=== PATIENT | male | born 1990 | race Caucasian/White ===

== ENCOUNTER 2018-02-15 09:46 | Emergency (ER) | payer OTHER ==
[2018-02-15] MEDS ORDERED: Lidocaine 1% 50 ML MDV INJECT ONE (10:13)
--- NOTE | 2018-02-15 10:25 | EDM.PDOC ---
ED HPI GENERAL MEDICAL PROBLEM - General Chief Complaint: ENT Problem Stated Complaint: R EAR/HEAD INJURY Time Seen by Provider: 02/15/18 10:09 Source of Information: Reports: Patient, RN Notes Reviewed - History of Present Illness INITIAL COMMENTS - FREE TEXT/NARRATIVE: 27-year-old male comes in with right ear laceration. He was installing a garage door, states one of the metal railing pieces fell striking the right side of his head and resultant laceration of the right ear lobe. There was a lot of bleeding initially, now better. No LOC. No major head or neck discomfort. No other significant injury. Last tetanus immunization a very short time ago. Headache Pain Score (Numeric/FACES): 6 - Related Data Allergies Allergy/AdvReac Type Severity Reaction Status Date / Time No Known Allergies Allergy Verified 02/15/18 10:00 Home Meds: Home Meds FLUoxetine HCl [Fluoxetine HCl] 40 mg PO DAILY 02/15/18 [History] Past Medical History Other Gastrointestinal History: Ulcers- gets endoscopy every 4-5 years Psychiatric History: Reports: ADHD, Depression - Past Surgical History HEENT Surgical History: Reports: Oral Surgery GI Surgical History: Reports: Appendectomy Social & Family History - Family History Family Medical History: Noncontributory - Tobacco Use Smoking Status *Q: Former Smoker Used Tobacco, but Quit: Yes Month/Year Tobacco Last Used: January 2018 - Caffeine Use Caffeine Use: Reports: Energy Drinks, Soda Other Caffeine Use: daily - Recreational Drug Use Recreational Drug Use: No ED ROS ENT - Review of Systems Review Of Systems: See Below Constitutional: Reports: No Symptoms HEENT: Reports: Ear Pain, Other (Laceration right lobe) Respiratory: Reports: No Symptoms Cardiovascular: Reports: No Symptoms GI/Abdominal: Denies: Nausea, Vomiting Musculoskeletal: Denies: Neck Pain, Shoulder Pain, Arm Pain Neurological: Denies: Headache ED EXAM, ENT - Physical Exam Exam: See Below General Appearance: Alert, No Apparent Distress Eye Exam: Bilateral Eye: PERRL Nose: Normal Inspection Mouth/Throat: Normal Inspection Head: Other (2.5 cm horizontal laceration right upper earlobe, moderately deep, gaping) Neck: Supple, Non-Tender Respiratory/Chest: No Respiratory Distress Extremities: Normal Inspection Neurological: Alert, Oriented, No Motor/Sensory Deficits Skin: Warm, Dry, Normal Color ED ENT PROCEDURES - Laceration/Wound Repair Right Upper Ear Lac/wound length in cm: 2.5 Anesthetic Type: Local Local Anesthesia - Lidocaine (Xylocaine): 1% Plain Skin Prep: Saline Suture Size: other (and 5-0) # of Sutures: 10 Suture Type: Nylon Right Ear Lac/wound length in cm: 2.5 Appearance: Linear Anesthetic Type: Local Local Anesthesia - Lidocaine (Xylocaine): 1% Plain Skin Prep: Saline Suture Size: other # of Sutures: 10 Suture Type: Nylon (And 50) Course - Vital Signs Last Recorded V/S: Last Vital Signs Temp 98.0 F 02/15/18 09:55 Pulse 80 02/15/18 09:55 Resp 16 02/15/18 09:55 BP 115/88 02/15/18 09:55 Pulse Ox 99 02/15/18 09:55 - Orders/Labs/Meds Meds: Medications Discontinued Medications Generic Name Dose Route Start Last Admin Trade Name Freq PRN Reason Stop Dose Admin Lidocaine HCl 50 ml 02/15/18 10:13 02/15/18 10:39 Xylocaine 1% INJECT 02/15/18 10:14 50 ml ONETIME ONE Administration Departure - Departure Time of Disposition: 10:50 Disposition: Home, Self-Care 01 Condition: Fair Clinical Impression: Ear lobe laceration Qualifiers: Encounter type: initial encounter Laterality: right Qualified Code(s): S01.311A - Laceration without foreign body of right ear, initial encounter - Discharge Information Instructions: Laceration Care, Adult, [id number] Referrals: Mal Lea PA-C [Primary Care Provider] - Forms: ED Department Discharge, ED Return to Work/School Form Additional Instructions: ED HPI GENERAL MEDICAL PROBLEM - General Chief Complaint: ENT Problem Stated Complaint: R EAR/HEAD INJURY Time Seen by Provider: 02/15/18 10:09 Source of Information: Reports: Patient, RN Notes Reviewed Headache Pain Score (Numeric/FACES): 6 - Related Data Allergies Allergy/AdvReac Type Severity Reaction Status Date / Time No Known Allergies Allergy Verified 02/15/18 10:00 Home Meds: Home Meds FLUoxetine HCl [Fluoxetine HCl] 40 mg PO DAILY 02/15/18 [History] Past Medical History Other Gastrointestinal History: Ulcers- gets endoscopy every 4-5 years Psychiatric History: Reports: ADHD, Depression - Past Surgical History HEENT Surgical History: Reports: Oral Surgery GI Surgical History: Reports: Appendectomy Social & Family History - Family History Family Medical History: Noncontributory - Tobacco Use Smoking Status *Q: Former Smoker Used Tobacco, but Quit: Yes Month/Year Tobacco Last Used: January 2018 - Caffeine Use Caffeine Use: Reports: Energy Drinks, Soda Other Caffeine Use: daily - Recreational Drug Use Recreational Drug Use: No Course - Vital Signs Last Recorded V/S: Last Vital Signs Temp 98.0 F 02/15/18 09:55 Pulse 80 02/15/18 09:55 Resp 16 02/15/18 09:55 BP 115/88 02/15/18 09:55 Pulse Ox 99 02/15/18 09:55 - Orders/Labs/Meds Meds: Medications Discontinued Medications Generic Name Dose Route Start Last Admin Trade Name Triston PRN Reason Stop Dose Admin Lidocaine HCl 50 ml 02/15/18 10:13 02/15/18 10:39 Xylocaine 1% INJECT 02/15/18 10:14 50 ml ONETIME ONE Administration Departure - Departure Time of Disposition: 10:50 Condition: Fair Clinical Impression: Ear lobe laceration Qualifiers: Encounter type: initial encounter Laterality: right Qualified Code(s): S01.311A - Laceration without foreign body of right ear, initial encounter - Discharge Information Referrals: Mal Lea PA-C [Primary Care Provider] - Forms: ED Department Discharge Laceration care instructions, stitches out in about 6 days, there is no charge if you have those stitches removed at our [facility] medical clinic. Antibiotic ointment 2-3 times daily to area of laceration, have rechecked any sign of infection, Tylenol or ibuprofen if needed for discomfort.
== END 2018-02-15 11:49 | disposition home or self-care (01) ==
LOC: JD.ED 09:46
DX: S01.311A Laceration without foreign body of right ear, initial encounter (principal); Z87.891 Personal history of nicotine dependence; W22.8XXA Striking against or struck by other objects, initial encounter
CPT/HCPCS: 12011; 99283-25